=== PATIENT | female | born 1995 | race Caucasian/White ===

== ENCOUNTER 2024-11-10 15:56 | Emergency (ER) | payer OTHER ==
[~2024-11-10] VITALS: Ht 165.1 cm; Wt 155.1 kg
[2024-11-10] MEDS ORDERED: WELLBUTRIN SR150 MG PO (16:13)
[2024-11-10] MEDS ORDERED: ADDERALL 20 MG20 MG PO (16:13)
[2024-11-10] MEDS ORDERED: METFORMIN HCL1000 M1 PO (16:14)
[2024-11-10 17:08] VITALS: BP 139/74
[2024-11-12 09:43] LABS: HEPATITIS B SURFACE ANTIGEN Negative (Negative)
[2024-11-12 10:31] LABS: HIV 1,2 COMBO ANTIGEN/ANTIBODY Negative (Negative)
[2024-11-12 11:10] LABS: HEPATITIS C AB CIA INTERP Negative (Negative); HEPATITIS C ANTIBODY CIA INDEX 0.09 IV (())
== END 2024-11-10 17:09 | disposition home or self-care (01) ==
LOC: ED 15:56
PROVIDERS: Emergency Medicine
DX: S61.231A Puncture wound without foreign body of left index finger without damage to nail, initial encounter (principal); J45.909 Unspecified asthma, uncomplicated; Z79.84 Long term (current) use of oral hypoglycemic drugs; Z79.899 Other long term (current) drug therapy; W46.1XXA Contact with contaminated hypodermic needle, initial encounter; Y93.F9 Activity, other caregiving
CPT/HCPCS: 36415; 84460; 86803; 87340; 99283